=== PATIENT | female | born 1995 | race Caucasian/White ===

== ENCOUNTER 2025-04-29 17:18 | Day surgery (SDC) | payer BC ==
[2025-04-29 17:48] VITALS: BMI 30.2
[2025-04-29] MEDS ORDERED: hydrALAZINE 20 MG/ML VIAL SLOW IVP PRN (18:09)
== END 2025-04-29 18:09 | disposition home or self-care (01) ==
LOC: CSHLD/OP 17:18
PROVIDERS: ATTEND Student in an Organized Health Care Education/Training Program
DX: O99.891 Other specified diseases and conditions complicating pregnancy (principal); R03.0 Elevated blood-pressure reading, without diagnosis of hypertension; O34.211 Maternal care for low transverse scar from previous cesarean delivery; O47.03 False labor before 37 completed weeks of gestation, third trimester; Z3A.36 36 weeks gestation of pregnancy; Z91.040 Latex allergy status; Z79.899 Other long term (current) drug therapy
CPT/HCPCS: 99283